=== PATIENT | female | born 1960 | race Caucasian/White ===

== ENCOUNTER → 2017-04-13 | Day surgery (SDC) | payer MEDICARE ==
[~2017-04-13] VITALS: Ht 170.2 cm; Wt 84.0 kg
[~2017-04-13] MED LIST: ALBU2TAB4 PO; ASPI-516 CHEW; ATOR40TA16 PO; BUPIVACAINE HCL PF 0.5% 30 ML VIAL ONE; BUPR150XL PO; CEPH-460 PO; CHLORHEXIDINE GLUCONATE 2 % 1 PACK (2 CLOTHS) TOPICAL PRN; GABA800T PO; LACTATED RINGER'S 1000 ML IV PRN; LEVO25TA4 PO; LIDOCAINE HCL 2% 50 ML VIAL ONE; LOSA25TA PO; NEOMYCIN/POLYMYXIN 1 ML G.U. IRRIGANT ONE; NORC5TAB PO; OMEP40CA2 PO; POVIDONE IODINE 5% (ANTISEPSIS KIT) 4 APPLICATIONS EACH NARE PRN; TRIAMCINOLONE ACETONIDE 40 MG/ML VIAL ONE; UMEC1AER INH; ceFAZolin 2 GM PREMIX 50 ML IV SCH
[2017-04-13 08:55] VITALS: TEMP 98.4
[2017-04-13 09:50] VITALS: BP 116/69; PULSE 65; RESP 16; O2SAT 99
--- NOTE | 2017-04-13 10:34 | MP ---
cc: MARCELLUS CALDERÓN III, M.D. DATE OF SURGERY 04/13/2017 PREOPERATIVE DIAGNOSIS Bilateral carpal tunnel syndrome. PROCEDURE 1. Left open carpal tunnel release. 2. Right carpal tunnel steroid injection. SURGEON Marcellus Calderón III, MD PROCEDURE The patient was brought to the operating room and placed supine on the operating table. After the correct site and side of the surgery were verified by the members of each team in the room multiple times including the patient and myself and, after adequate preoperative markings and preoperative written consent were verified by everyone and, after adequate preoperative time-out was performed to everyone's satisfaction, and after adequate IV sedation had been achieved, the left upper extremity was prepped and draped in the traditional sterile surgical fashion. A 50/50 mixture of 2% plain lidocaine and 0.5% plain Marcaine was infiltrated in the skin and subcutaneous tissue and the base of the palm, into the carpal tunnel. The limb was exsanguinated with an Mark wrap and a highly placed, well-padded axillary tourniquet was inflated to 200 mmHg for a total of 10 minutes. A longitudinally oriented incision within the base of the palm was made and carried down through the skin and subcutaneous tissue. The palmar fascia was retracted in opposite directions and the transverse carpal ligament was identified. It was divided in its entirety in its midline from its proximal-most to its distal-most extents, completely freeing the carpal tunnel contents. There was a moderately hypertrophic tenosynovium but no evidence of any other mass effect or anatomic abnormality was identified. Thorough irrigation was performed. There were no other crossing bands of constriction. Thorough irrigation with saline was performed. The skin edges were reapproximated using running 4-0 nylon sutures. The hand and arm were thoroughly cleansed and dried, Betadine and Adaptic dressing was applied on top of the wound, followed by a bulky soft dressing and lightly wrapped circumferentially with Mark wrap in the usual fashion. The axillary tourniquet released prior to placement of the Mark wrap and the hand and all fingers became immediately soft, pink, warm and had brisk capillary refill of less than 2 seconds. There was no evidence of any bleeding or hematoma formation. The right carpal tunnel was then sterilely injected in the usual fashion with a 1:1 mixture of 2% plain lidocaine and Kenalog 40 mg/mL for a total of 2 cc injected. Pressure was held and a sterile dressing was applied. The capillary refill was less than 2 seconds the entire time. The patient was awakened from anesthesia and transported to the Post-Anesthesia Care Unit awake and in stable condition at the end of the case. Sponge, needle and instrument counts were correct at the end of the case. MD SUDARSHAN Suarez III/SSB /8:57 AM /10:21 AM
--- NOTE | 2017-04-13 15:46 | EKG ---
Date Performed: 04/13/2017 Time Performed: 07:05:23 PTAGE: 56 years EKG: Sinus rhythm NORMAL ECG NO PREVIOUS TRACING DOCTOR: Noble Burden Interpretating Date/Time 04/13/2017 15:45:14
== END | disposition home or self-care (01) ==
LOC: PHSDC 06:10
PROVIDERS: ATTEND Orthopaedic Surgery Hand Surgery
DX: G56.03 Carpal tunnel syndrome, bilateral upper limbs (principal); I10 Essential (primary) hypertension; E78.5 Hyperlipidemia, unspecified; E03.9 Hypothyroidism, unspecified; J44.9 Chronic obstructive pulmonary disease, unspecified
CPT/HCPCS: 20526; 64721; 93005; J0690; J3301; J7120